=== PATIENT | male | born 1995 | race Caucasian/White ===

== ENCOUNTER 2025-04-13 11:43 | Emergency (ER) | payer OTHER ==
[~2025-04-13] VITALS: Ht 180.3 cm; Wt 84.0 kg
[2025-04-13 12:19] VITALS: TEMP 100.8
[2025-04-13 12:51] LABS: MEAN PLATELET VOLUME 7.1 FL (7.4-10.4); RED CELL DISTRIBUTION WIDTH 12.8 % (11.5-14.5)
[2025-04-13 13:08] LABS: CREATININE 1.18 MG/DL (0.60-1.10); TOTAL CARBON DIOXIDE 31.3 MMOL/L (24-32); eCRCL 97 ML/MIN; eGFR 72 ML/MIN
[2025-04-13 13:42] LABS: LEUKOCYTE ESTERASE ,URINE NEGATIVE (Neg); NITRITES, URINE NEGATIVE (Neg); OCCULT BLOOD,URINE NEGATIVE (Neg)
[2025-04-13 13:45] LABS: UA COLLECTION TYPE NON-SPECIFIED
--- NOTE | 2025-04-13 13:47 | Physician Documentation ---
History of Present Illness Chief Complaint: Abdominal Pain Stated Complaint: ABD PAIN DIARRHEA Time Seen by MD: 13:12 HPI 30-year-old male presents to the ED with a complaint of two weeks of diarrhea which has developed a into hematochezia. States the blood is lillie colored. States he has felt like he has got a fever. Denies any history of GI bleed. He adds that sometimes he feels as though he has a go to the bathroom but then just has some bloody diarrhea. Also complains of dizziness and left lower quadrant abdomen pain for the last week Day of Onset: Apr 13, 2025 Medication Reconciliation Allergies: Coded Allergies: No Known Allergies (Unverified , 04/13/25) Scheduled Omeprazole (Prilosec), 1 CAP PO DAILY Prednisone (Prednisone), 1 TAB PO BID Review of Systems All Other Systems at this time: Reviewed and Negative ROS As stated above in the HPI, otherwise all systems are reviewed and negative. Physical Exam Vital Signs: Temperature: 100.8, Source: Oral, Heart Rate: 94, Respiratory Rate: 18, BP: 130/85, Pulse Oximetry: 100, Weight: 84.000 Physical Exam General: Alert, no apparent distress. Respiratory: Lungs clear, no respiratory distress. Cardiovascular: Regular rate and rhythm, no murmurs. Gastrointestinal: Soft, tender via palpation of the left lower quadrant Neurologic: Oriented x4. Psychiatric: Normal mood and affect. Skin: Normal color, warm and dry. No edema, no ecchymosis. Progress Results/Orders Results/Orders Vital Signs 04/13/25 12:19 Temp 100.8 Pulse 94 Resp 18 B/P (MAP) 130/85 Pulse Ox 100 Laboratory Tests Test 04/13/25 12:40 04/13/25 13:05 White Blood Count 12.4 H Red Blood Count 4.71 Hemoglobin 13.9 L Hematocrit 41.6 L Mean Corpuscular Volume 88.3 Mean Corpuscular Hemoglobin 29.5 Mean Corpuscular Hemoglobin Concent 33.4 Red Cell Distribution Width 12.8 Platelet Count 290 Mean Platelet Volume 7.1 L Neutrophils (%) (Auto) 68.3 Lymphocytes (%) (Auto) 16.2 L Monocytes (%) (Auto) 8.8 Eosinophils (%) (Auto) 5.9 Basophils (%) (Auto) 0.8 Neutrophils # (Auto) 8.4 H Lymphocytes # (Auto) 2.0 Monocytes # (Auto) 1.1 H Eosinophils # (Auto) 0.7 Basophils # (Auto) 0.1 CBC Comment Sodium Level 140 Potassium Level 4.8 Chloride Level 102 Carbon Dioxide Level 31.3 Anion Gap 7 L Blood Urea Nitrogen 8 Creatinine 1.18 H Estimated GFR/1.73 m2 72 BUN/Creatinine Ratio 6.8 L Glucose Level 91 Calcium Level 8.9 Total Bilirubin 0.4 Aspartate Amino Transf (AST/SGOT) 15 Alanine Aminotransferase (ALT/SGPT) 16 Alkaline Phosphatase 122 H Total Protein 7.3 Albumin 3.6 Globulin 3.7 Albumin/Globulin Ratio 1.0 L Lipase 25 Chemistry Comments Urine Specimen Description Non-specified Urine Color Straw Urine Clarity Clear Urine pH 6.5 Urine Specific [place] <=1.005 Urine Protein Negative Urine Glucose (UA) Negative Urine Ketones Negative Urine Occult Blood Negative Urine Nitrite Negative Urine Bilirubin Negative Urine Urobilinogen 0.2 Urine Leukocyte Esterase Negative Urine Culture Indicated Not ind Volume Urine Centrifuged 10 ml Urine Comment Medical Decision Making Findings colitis, inflammatory bowel disease This patient was hemodynamically stable throughout his stay is in no acute distress and says he feels fine now., I was initially concerned about potential internal hemorrhoids which had ruptured however upon further evaluation this did not clinically correlate. I requested a CT scan of the abdomen pelvis which indicated possible colitis or IBS. Secondary to bowel wall thickening. Going to discharge him on a PPI and have him follow up with the his primary care Differential Dx:Considerations: Include: AAA, Angina/NM, Aortic dissection, Appendicitis, Bowel obstruction, Cholangitis, Cholelithasis, Constipation, Diverticular disease, Esophageal rupture, Esophagitis, Gastritis/PUD, Gastroenteritis, GI hemorrhage, Hernia, Hepatitis, Inflammatory BD, Ischemic bowel, Pancreatitis, Porphyria, Testicular torsion, Trauma, intraabdominal, Urinary obstruction, Urinary tract infection, Urolithiasis, Other Departure Disposition: HOME / SELF CARE / HOMELESS Impression: Primary Impression: Abdominal pain Additional Impression: Colitis Additional Instructions: Your CT and labs were very reassuring. Come in utilizing a non ascitic diet taking medication as prescribed which should help alleviate your symptoms. If they do not I recommend following with the primary care for further evaluation Referrals: NO PRIMARY CARE PROVIDER (PCP) Prescriptions Prednisone (Prednisone) 10 Mg Tablet 1 TAB PO BID for 5 Days, #10 TAB Prov: DENNYS DUNLAP NP 04/13/25 Omeprazole (Prilosec) 40 Mg Capsule 1 CAP PO DAILY for 30 Days, #30 CAP Prov: DENNYS DUNLAP NP 04/13/25 Signature Scribe Signature: Scribed for Dennys Dunlap Np by Dennys Parrish NP . 04/13/25 15:43 Attestation: Scribed for Dennys Dunlap Np by Dennys Parrish NP . 04/13/25 18:29 DENNYS DUNLAP NP Apr 13, 2025 13:47
[2025-04-13 14:30] VITALS: BP 110/72; PULSE 87; RESP 18; O2SAT 100
--- NOTE | 2025-04-13 15:32 | RADIOLOGY REPORT ---
Indication: GI BLEED WTIH ABD PAIN Technique: CT axial images of the abdomen and pelvis are obtained without contrast. Coronal and sagit rosalino reformats were obtained. Radiation Dose Information: CTDI volume is 14.4 mGy. Dose-length product is 731 mGy*cm Comparison: None FINDINGS: There is limited interpretation of the abdomen and pelvis without administration of intravenous contr ast. Lung bases demonstrate no pleural effusion Adrenal glands, spleen, pancreas liver unremarkable in shape. No CT evidence for cholelithiasis. No hydronephrosis, nephrolithiasis. Stomach is partially distended. Small bowel loops are normal in caliber. Normal appendix. Extensive bowel wall thickening with surrounding stranding involving the transverse , descending and rectosigmoid colon. Numerous mesenteric lymph nodes up to 1.5 cm. Bladder partially distended. Trace free pelvic fluid. No inguinal lymphadenopathy. [id number] bilateral sacroiliac degenerative joint disease. Old left iliac fracture. Mild thor acolumbar degenerative disc disease. IMPRESSION: Limited evaluation without contrast. Extensive bowel wall thickening with surrounding stranding involving the transverse, descending and r ectosigmoid colon. Differential considerations include colitis, inflammatory bowel disease.
[2025-04-13] MEDS ORDERED: OMEP40CA21 PO (15:41)
[2025-04-13] MEDS ORDERED: PRED10TA23 PO (15:46)
[2025-04-13] MEDS: normal saline 1000ML IV soln IVB ONE (15:47)
== END 2025-04-13 15:59 | disposition home or self-care (01) ==
LOC: ER 11:44
DX: K52.9 Noninfective gastroenteritis and colitis, unspecified (principal); Z79.899 Other long term (current) drug therapy
CPT/HCPCS: 36415; 74176; 80053; 81003; 83690; 85025; 99284; J7030